=== PATIENT | female | born 1980 | race African-American/Black ===

== ENCOUNTER 2016-10-23 02:53 | Emergency (ER) | payer BC, OTHER ==
[2016-10-23 03:45] VITALS: BP 135/93
[2016-10-23] MEDS ORDERED: DIPHENHYDRAMINE HCL 50 MG/ML VIAL IM ONE (03:46)
[2016-10-23] MEDS ORDERED: PROMETHAZINE HCL INJ 25 MG/1 ML VIAL IM ONE (03:46)
--- NOTE | 2016-10-23 03:49 | ER Document Report ---
ED General - General Chief Complaint: Headache Stated Complaint: HEADACHE AND COLD SYMPTOMS Notes: Patient is a 36-year-old female presents with complaint of pain over her frontal sinuses because of the left side of her head. She says headaches been off and on an intermittent for several days. Tonight she started getting little pain into her neck. Pain is also normal aside her neck. Patient says she's had these headaches multiple times in the past. She says he seemed to be related to her sinuses. She says they've been intermittent for years. Recently she started having cold and sinus type symptoms. She suspects her headache is related to that was not completely sure. She's never had workup for headaches in the past. This no family history of cerebral aneurysms. Headaches or not sudden in onset. No other complaints at this time. TRAVEL OUTSIDE OF THE [place] IN LAST 30 DAYS: No - Related Data Allergies/Adverse Reactions: No Known Allergies Allergy (Verified 02/13/16 10:27) Past Medical History - Social History Smoking Status: Never Smoker Frequency of alcohol use: None Drug Abuse: None Family History: Reviewed & Not Pertinent Patient has suicidal ideation: No Patient has homicidal ideation: No - Past Medical History Cardiac Medical History: Reports: Hx Hypertension Pulmonary Medical History: Denies: Hx Asthma, Hx Bronchitis, Hx Pneumonia Past Surgical History: Reports: Hx Section - x1, Hx Cholecystectomy, Hx Thyroid Surgery - partial thyroidectomy - Immunizations Immunizations up to date: Yes Hx Diphtheria, Pertussis, Tetanus Vaccination: Yes Review of Systems - Review of Systems Notes: My Normal Review Basic REVIEW OF SYSTEMS: CONSTITUTIONAL : Denies fever, chills, or sweats. Denies recent illness. EENT: Denies eye, ear, throat, or mouth pain or symptoms. Denies nasal or sinus congestion. CARDIOVASCULAR: Denies chest pain. RESPIRATORY: Denies cough, cold, or chest congestion. Denies shortness of breath, difficulty breathing, or wheezing. GASTROINTESTINAL: Denies abdominal pain. Denies nausea, vomiting, or diarrhea. Denies constipation. Last BM: GENITOURINARY: Denies difficulty urinating, painful urination, burning, frequency, or blood in urine. MUSCULOSKELETAL: Some neck pain. SKIN: Denies rash or skin lesions. NEUROLOGICAL: Denies altered mental status or loss of consciousness. Has a headache. Denies weakness or paralysis or loss of use of either side. Denies problems with gait or speech. Denies sensory or motor loss. ALL OTHER SYSTEMS REVIEWED AND NEGATIVE. Physical Exam - Vital signs Vitals: Temp Pulse Resp BP Pulse Ox 98.5 F 88 20 152/107 H 98 10/23/16 02:58 10/23/16 02:58 10/23/16 02:58 10/23/16 02:58 10/23/16 02:58 - Notes Notes: General Appearance: Well nourished, alert, cooperative, no acute distress, well to moderate obvious discomfort. Vitals: reviewed, See vital signs table. Head: Some pressure when tapping over the left frontal sinus. Eyes: PERRL, EOMI, Conjuctiva clear Mouth: No decreasd moisture Throat: No tonsillar inflammation, No airway obstruction, No lymphadenopathy Neck: Supple, no neck tenderness, No thyromegaly Lungs: No wheezing, No rales, No rhonci, No accessory muscle use, good air exchange bilaterally. Heart: Normal rate, Regular rythm, No murmur, no rub Abdomen: Normal BS, soft, No rigidity, No abdominal tenderness, No guarding, no rebound, no abdominal masses, no organomegaly Extremities: strength 5/5 in all extremities, good pulses in all extremities, no swelling or tenderness in the extremities, no edema. Skin: warm, dry, appropriate color, no rash Neuro: speech clear, oriented x 3, normal affect, responds appropriately to questions. Cranial nerves II through XII are intact. Distal sensation intact. Patient moves all extremities without difficulty. Normal Romberg. Normal gait. Course - Vital Signs Vital signs: Temp Pulse Resp BP Pulse Ox 98.5 F 74 18 135/93 H 99 10/23/16 02:58 10/23/16 03:41 10/23/16 03:41 10/23/16 03:41 10/23/16 03:41 - Transfer of Care Notes: 10/29/16 05:36 Patient's headache resolved after taking medications. Patient's son much improved. Her pain seemed to be very much over the sinuses cells. Headache was not sudden onset. Is gradual in onset. Headache is not consistent with subarachnoid hemorrhage. This time we'll discharge patient home. Encourage return to ER immediately if she has worsening current headaches, vomiting, fevers, or feels unwell. Patient agrees with plan and will be discharged home. Patient was given hand written discharge instructions because computer system was down at time of discharge. Dictation of this chart was performed using voice recognition software; therefore, there may be some unintended grammatical errors. 10/29/16 05:37 Discharge - Discharge Disposition: HOME, SELF-CARE
[2016-10-23] MEDS ORDERED: PROMETHAZINE HCL INJ 25 MG/1 ML VIAL ONE (04:04)
== END 2016-10-23 05:30 | disposition home or self-care (01) ==
LOC: ER 02:53
DX: R51 Headache (principal); M54.2 Cervicalgia; I10 Essential (primary) hypertension
CPT/HCPCS: 99284; 96372; 70450; J1200; J2550

== ENCOUNTER 2017-01-29 08:10 | Emergency (ER) | payer SELFPAY ==
[2017-01-29 08:32] VITALS: BP 146/93
--- NOTE | 2017-01-29 08:45 | ER Document Report ---
ED General - General Chief Complaint: Constipation Stated Complaint: BACK PAIN Mode of Arrival: Ambulatory Information source: Patient Notes: 36-year-old female presents with complaints of constipation during her menses. Pt denies any fever or chills, denies any urinary or bowel difficulty or complaints. pt notes that when she passes gas the pain goes away. TRAVEL OUTSIDE OF THE [place] IN LAST 30 DAYS: No - HPI Onset: Other - 2 months Onset/Duration: Intermittent Quality of pain: Cramping Severity: Mild Pain Level: 1 Associated symptoms: Other Exacerbated by: Denies Relieved by: Denies Similar symptoms previously: Yes Recently seen / treated by doctor: Yes - seen by obgyn for this pain - Related Data Allergies/Adverse Reactions: No Known Allergies Allergy (Verified 01/29/17 08:13) Past Medical History - Social History Smoking Status: Never Smoker Cigarette use (# per day): No Chew tobacco use (# tins/day): No Family History: Reviewed & Not Pertinent Patient has suicidal ideation: No Patient has homicidal ideation: No - Past Medical History Cardiac Medical History: Reports: Hx Hypertension Pulmonary Medical History: Denies: Hx Asthma, Hx Bronchitis, Hx Pneumonia Renal/ Medical History: Denies: Hx Peritoneal Dialysis Past Surgical History: Reports: Hx Section - x1, Hx Cholecystectomy, Hx Thyroid Surgery - partial thyroidectomy - Immunizations Immunizations up to date: Yes Hx Diphtheria, Pertussis, Tetanus Vaccination: Yes Review of Systems - Review of Systems Notes: REVIEW OF SYSTEMS: CONSTITUTIONAL : Denies fever, chills, or sweats. Denies recent illness. EENT: Denies eye, ear, throat, or mouth pain or symptoms. Denies nasal or sinus congestion or discharge. Denies throat, tongue, or mouth swelling or difficulty swallowing. CARDIOVASCULAR: Denies chest pain. Denies palpitations or racing or irregular heart beat. Denies ankle edema. RESPIRATORY: Denies cough, cold, or chest congestion. Denies shortness of breath, difficulty breathing, or wheezing. GASTROINTESTINAL: Admits constipation GENITOURINARY: Denies difficulty urinating, painful urination, burning, frequency, blood in urine, or discharge. FEMALE GENITOURINARY: Denies vaginal bleeding, heavy or abnormal periods, irregular periods. Denies vaginal discharge or odor. MUSCULOSKELETAL: Denies back or neck pain or stiffness. Denies joint pain or swelling. SKIN: Denies rash, lesions or sores. HEMATOLOGIC : Denies easy bruising or bleeding. LYMPHATIC: Denies swollen, enlarged glands. NEUROLOGICAL: Denies confusion or altered mental status. Denies passing out or loss of consciousness. Denies dizziness or lightheadedness. Denies headache. Denies weakness or paralysis or loss of use of either side. Denies problems with gait or speech. Denies sensory loss, numbness, or tingling. Denies seizures. PSYCHIATRIC: Denies anxiety or stress. Denies depression, suicidal ideation, or homicidal ideation. ALL OTHER SYSTEMS REVIEWED AND NEGATIVE. Dictation was performed using Spool voice recognition software PHYSICAL EXAMINATION: GENERAL: Well-appearing, well-nourished and in no acute distress. HEAD: Atraumatic, normocephalic. EYES: Pupils equal round and reactive to light, extraocular movements intact, conjunctiva are normal. ENT: Nares patent, oropharynx clear without exudates. Moist mucous membranes. NECK: Normal range of motion, supple without lymphadenopathy LUNGS: Breath sounds clear to auscultation bilaterally and equal. No wheezes rales or rhonchi. HEART: Regular rate and rhythm without murmurs ABDOMEN: Soft, nontender, nondistended abdomen. No guarding, no rebound. No masses appreciated. Bilateral CVA tenderness Female : deferred Musculoskeletal: Normal range of motion, no pitting or edema. No cyanosis. NEUROLOGICAL: Cranial nerves grossly intact. Normal speech, normal gait. Normal sensory, motor exams PSYCH: Normal mood, normal affect. SKIN: Warm, Dry, normal turgor, no rashes or lesions noted. Physical Exam - Vital signs Vitals: Temp Pulse Resp BP Pulse Ox 98.1 F 82 20 143/93 H 100 01/29/17 08:13 01/29/17 08:13 01/29/17 08:13 01/29/17 08:13 01/29/17 08:13 Course - Re-evaluation Re-evalutation: 01/29/17 08:46 Urinalysis pending x-ray will be performed after hCG result 01/29/17 10:26 hcg negative, xray normal, will dc home with bentyl. pt otherwise is stable After performing a Medical Screening Examination, I estimate there is LOW risk for ACUTE APPENDICITIS, BOWEL OBSTRUCTION, ACUTE CHOLECYSTITIS, PERFORATED DIVERTICULITIS, INCARCERATED HERNIA, PANCREATITIS, PELVIC INFLAMMATORY DISEASE, PERFORATED ULCER, ECTOPIC , or TUBO-OVARIAN ABSCESS, thus I consider the discharge disposition reasonable. Also, there is no evidence or peritonitis , sepsis, or toxicity. I have reevaluated this patient multiple times and no significant life threatening changes are noted. The patient and I have discussed the diagnosis and risks, and we agree with discharging home with close follow-up with the understanding that symptoms and presentations can change. We also discussed returning to the Emergency Department immediately if new or worsening symptoms occur. We have discussed the symptoms which are most concerning (e.g., bloody stool, fever, changing or worsening pain, vomiting) that necessitate immediate return. - Vital Signs Vital signs: Temp Pulse Resp BP Pulse Ox 98.1 F 82 20 146/93 H 100 01/29/17 08:14 01/29/17 08:14 01/29/17 08:14 01/29/17 08:14 01/29/17 08:14 - Laboratory Laboratory results interpreted by me: 01/29/17 08:40 Ur Leukocyte Esterase SMALL H - Diagnostic Test Radiology reviewed: Image reviewed, Reports reviewed Discharge - Discharge Clinical Impression: Abdominal pain Qualifiers: Abdominal location: generalized Qualified Code(s): R10.84 - Generalized abdominal pain Back pain Qualifiers: Back pain location: low back pain Chronicity: chronic Back pain laterality: bilateral Sciatica presence: with sciatica Sciatica laterality: bilateral sciatica Qualified Code(s): M54.42 - Lumbago with sciatica, left side; M54.41 - Lumbago with sciatica, right side; G89.29 - Other chronic pain Condition: Stable Disposition: HOME, SELF-CARE Instructions: Abdominal Pain ([facility]) Prescriptions: Dicyclomine HCl [Bentyl 20 mg Tablet] 20 mg PO QID #40 tablet Naproxen 500 mg PO BID #20 tablet Referrals: ALBERTO LOJA MD [Primary Care Provider] - Follow up in 3-5 days
[2017-01-29 09:03] LABS: APPEARANCE,URINE SLIGHTLY-CLOUDY; BILIRUBIN,URINE NEGATIVE (NEGATIVE); GLUCOSE, URINE NEGATIVE (NEGATIVE); KETONES,URINE NEGATIVE (NEGATIVE); LEUKOCYTE ESTERASE,URINE SMALL (NEGATIVE); NITRITE,URINE NEGATIVE (NEGATIVE); PROTEIN,URINE NEGATIVE (NEGATIVE); URINE SPECIFIC GRAVITY 1.016; UROBILINOGEN,URINE NEGATIVE mg/dL (<2.0)
== END 2017-01-29 10:35 | disposition home or self-care (01) ==
LOC: ER 08:10
DX: R10.84 Generalized abdominal pain (principal); M54.41 Lumbago with sciatica, right side; M54.42 Lumbago with sciatica, left side; G89.29 Other chronic pain; M54.9 Dorsalgia, unspecified; K59.00 Constipation, unspecified
CPT/HCPCS: 74022; 81001; 81025; 99283

== ENCOUNTER 2017-06-09 15:03 | Emergency (ER) | payer OTHER ==
--- NOTE | 2017-06-09 15:22 | ER Document Report ---
ED Medical Screen (RME) - General Chief Complaint: Vaginal Bleeding Stated Complaint: EXCESSIVE MENSTRAL BLEEDING Time Seen by Provider: 06/09/17 15:21 Notes: Patient presents with heavy vaginal bleeding. She states she has had about 2 weeks of heavy bleeding. She is not lightheaded and dizzy. She was referred here today by her MILL DRESSER. She states she has had this in the past. She has had ultrasounds have been unremarkable and show no evidence of fibroids. She has been tried on oral contraceptives that did work for a while but now seemed to no longer be effective. TRAVEL OUTSIDE OF THE [place] IN LAST 30 DAYS: No - Related Data Allergies/Adverse Reactions: No Known Allergies Allergy (Verified 06/09/17 15:09) Past Medical History - Past Medical History Cardiac Medical History: Reports: Hx Hypertension Pulmonary Medical History: Denies: Hx Asthma, Hx Bronchitis, Hx Pneumonia Renal/ Medical History: Denies: Hx Peritoneal Dialysis Past Surgical History: Reports: Hx Section - x1, Hx Cholecystectomy, Hx Thyroid Surgery - partial thyroidectomy - Immunizations Immunizations up to date: Yes Hx Diphtheria, Pertussis, Tetanus Vaccination: Yes Physical Exam - Vital signs Vitals: Temp Pulse Resp BP Pulse Ox 98.5 F 77 20 123/74 98 06/09/17 15:10 06/09/17 15:10 06/09/17 15:10 06/09/17 15:10 06/09/17 15:10 Course - Vital Signs Vital signs: Temp Pulse Resp BP Pulse Ox 98.5 F 77 20 123/74 98 06/09/17 15:10 06/09/17 15:10 06/09/17 15:10 06/09/17 15:10 06/09/17 15:10
[2017-06-09 16:11] LABS: ABSOLUTE EOSINOPHILS # (AUTO) 0.2 10^3/uL (0.0-0.6); ABSOLUTE LYMPHOCYTES (AUTO) 2.3 10^3/uL (0.5-4.7); ABSOLUTE MONOCYTES (AUTO) 0.6 10^3/uL (0.1-1.4); ABSOLUTE NEUT (AUTO) 6.5 10^3/uL (1.7-8.2); BASOPHILS % (AUTO) 0.4 % (0-2); EOSINOPHILS % (AUTO) 1.7 % (0-6); HEMATOCRIT 35.4 % (36.0-47.0); HEMOGLOBIN 11.2 g/dL (12.0-15.5); HGB HCT DIFFERENCE -1.8; LYMPHOCYTES % (AUTO) 24.1 % (13-45); MEAN CORPUSCULAR HEMOGLOBIN 22.2 pg (27.0-33.4); MEAN CORPUSCULAR HGB CONC 31.7 g/dL (32.0-36.0); MEAN CORPUSCULAR VOLUME 70 fl (80-97); MONOCYTES % (AUTO) 6.5 % (3-13); RED BLOOD COUNT 5.05 10^6/uL (3.72-5.28); RED CELL DISTRIBUTION WIDTH 16.4 % (11.5-14.0); SEGMENTED NEUTROPHILS % (AUTO) 67.3 % (42-78); WHITE BLOOD COUNT 9.7 10^3/uL (4.0-10.5)
--- NOTE | 2017-06-09 16:26 | ER Document Report ---
ED GI/ - General Chief Complaint: Vaginal Bleeding Stated Complaint: EXCESSIVE MENSTRAL BLEEDING Time Seen by Provider: 06/09/17 15:21 Notes: Patient presents with heavy vaginal bleeding. She states she has had about 2 weeks of heavy bleeding. She is not lightheaded and dizzy. She was referred here today by her KITCHEN FOOD SERVER. She states she has had this in the past. She has had ultrasounds have been unremarkable and show no evidence of fibroids. She has been tried on oral contraceptives that did work for a while but now seemed to no longer be effective. admits to dizziness that started today, without vision changes, headache, n/v. No concern for , as she is not sexually active at this time OBGYN: [email or web address] TRAVEL OUTSIDE OF THE [place] IN LAST 30 DAYS: No - Related Data Allergies/Adverse Reactions: No Known Allergies Allergy (Verified 06/09/17 15:09) Home Medications: Current Home Medications Ferrous Sulfate [Iron] 325 mg PO BID 06/09/17 [History] Lisinopril/Hydrochlorothiazide [Lisinopril-Hctz 20-25 mg Tab] 1 each PO DAILY [History] Montelukast Sodium [Singulair] 10 mg PO DAILY 06/09/17 [History] Past Medical History - General Last Menstrual Period: 05/26/2017 - Social History Smoking Status: Never Smoker Chew tobacco use (# tins/day): No Frequency of alcohol use: None Drug Abuse: None Family History: Reviewed & Not Pertinent - Past Medical History Cardiac Medical History: Reports: Hx Hypertension Pulmonary Medical History: Denies: Hx Asthma, Hx Bronchitis, Hx Pneumonia Renal/ Medical History: Denies: Hx Peritoneal Dialysis Past Surgical History: Reports: Hx Section - x1, Hx Cholecystectomy, Hx Thyroid Surgery - partial thyroidectomy - Immunizations Immunizations up to date: Yes Hx Diphtheria, Pertussis, Tetanus Vaccination: Yes Review of Systems - Review of Systems Constitutional: No symptoms reported Gastrointestinal: No symptoms reported Genitourinary: No symptoms reported Female Genitourinary: See HPI -: Yes All other systems reviewed and negative Physical Exam - Vital signs Vitals: Temp Pulse Resp BP Pulse Ox 98.5 F 77 20 123/74 98 06/09/17 15:10 06/09/17 15:10 06/09/17 15:10 06/09/17 15:10 06/09/17 15:10 - Notes Notes: PHYSICAL EXAM GENERAL: Alert, interacts well. LUNGS: Clear to auscultation bilaterally, no wheezes, rales, or rhonchi. No respiratory distress. HEART: Regular rate and rhythm. No murmurs, gallops, or rubs. ABDOMEN: Soft, nondistended, nontender. No guarding, rebound, or rigidity.. Bowel sounds present in all 4 quadrants. FEMALE : Normal external exam. No evidence of lesions, lacerations, bruising or vesicles. Speculum exam normal cervix closed. No evidence of vaginal discharge with odor. No evidence of lesions. Minimal pooling of dark blood within the vaginal vault. No evidence of active vaginal bleeding. Vaginal vaginal bleeding. Bimanual exam normal no cervical motion tenderness. No adnexal mass or adnexal tenderness. EXTREMITIES: Moves all 4 extremities spontaneously. No edema, radial and dorsalis pedis pulses 2/4 bilaterally. No cyanosis. NEUROLOGICAL: Alert and oriented x4. Normal speech. PSYCH: Normal affect, normal mood. SKIN: Warm, dry, normal turgor. No rashes or lesions noted. Course - Re-evaluation Re-evalutation: 06/09/17 21:36 Patient is a 36-year-old female who is hemodynamically stable, no acute distress and afebrile. Vital signs stable. H&H is stable at 11.2 and 35.6. Results and physical exam findings were reviewed with KITCHEN FOOD SERVER Dr. Fabian who recommends patient continue her home medications and follow-up in the clinic. No additional imaging or laboratory evaluation is necessary at this time. Patient is able to ambulate without any difficulty. No dizziness. After performing a Medical Screening Examination, I estimate there is LOW risk for ACUTE APPENDICITIS, BOWEL OBSTRUCTION, ACUTE CHOLECYSTITIS, PERFORATED DIVERTICULITIS, INCARCERATED HERNIA, PANCREATITIS, PELVIC INFLAMMATORY DISEASE, PERFORATED ULCER, ECTOPIC , or TUBO-OVARIAN ABSCESS, thus I consider the discharge disposition reasonable. Also, there is no evidence or peritonitis , sepsis, or toxicity. I have reevaluated this patient multiple times and no significant life threatening changes are noted. The patient and I have discussed the diagnosis and risks, and we agree with discharging home with close follow-up with the understanding that symptoms and presentations can change. We also discussed returning to the Emergency Department immediately if new or worsening symptoms occur. We have discussed the symptoms which are most concerning (e.g., bloody stool, fever, changing or worsening pain, vomiting) that necessitate immediate return. - Vital Signs Vital signs: Temp Pulse Resp BP Pulse Ox 97.8 F 66 16 142/71 H 100 06/09/17 17:31 06/09/17 17:31 06/09/17 17:31 06/09/17 17:31 06/09/17 17:31 - Laboratory Result Diagrams: 06/09/17 15:56 06/09/17 15:56 Laboratory results interpreted by me: 06/09/17 06/09/17 15:56 15:56 Hgb 11.2 L Hct 35.4 L MCV 70 L MCH 22.2 L MCHC 31.7 L RDW 16.4 H Urine Blood LARGE H Discharge - Discharge Clinical Impression: Dysfunctional uterine bleeding Condition: Good Disposition: HOME, SELF-CARE Additional Instructions: VAGINAL BLEEDING: You are having an episode of abnormal bleeding. Causes of abnormal vaginal bleeding can include miscarriage or tubal , tumors such as cancer or benign fibroids, medication effects, or hormone imbalance. Testing can eliminate unsuspected , tumors, or infection as a cause. "Dysfunctional uterine bleeding" is due to hormone imbalance, and is especially common at times when the normal cycle is disturbed -- whether by recent , use of control pills or hormones, or impending menopause. If the bleeding is innocent, most commonly a short course of hormones is given to restore the uterus to normal. Sometimes, the normal menstrual cycle corrects itself naturally. Sometimes , brief hormone therapy, or even a D&C is required. Your physician will advise you. Treatment for anemia may be required if bleeding is severe. You should rest and avoid intercourse until the bleeding is controlled. Call the doctor or return for re-examination if you feel faint, have increasing pain, or have a major increase in the amount of bleeding. NORMAL EXAM AND WORKUP: At this time, except for vaginal bleeding, your examination and workup show no significant abnormality. No significant abnormal physical findings were noted. All laboratory, EKG, and imaging (x-ray, CT scans, ultrasound) studies that were ordered show no significant abnormality. Although your examination and all studies that were ordered showed no significant abnormal finding, there are no examinations and no studies that are 100% accurate. There is always the possibility that some abnormality could exist and not be detected with physical examination or within the limits and capabilities of laboratory and other studies. You should return or follow up as you were instructed on your visit today for further evaluation if your symptoms do not resolve. FOLLOW-UP CARE: If you have been referred to a physician for follow-up care, call the physician s office for an appointment as you were instructed or within the next two days. If you experience worsening or a significant change in your symptoms (very heavy bleeding with large clots of blood, passage of tissue, more severe abdominal / pelvic pain or cramping, feeling faint or severe weakness, fever, etc.), notify the physician immediately or return to the Emergency Department at any time for re-evaluation. Forms: Return to Work Referrals: FREDI ZABALA PA-C [Primary Care Provider] - Follow up as needed ANDRÉS HOLM MD [ACTIVE STAFF] - Follow up in 1 week
[2017-06-09 16:36] LABS: ALANINE AMINOTRANSFERASE 40 U/L (9-52); ALBUMIN 4.3 g/dL (3.5-5.0); ALKALINE PHOSPHATASE 99 U/L (38-126); ANION GAP 14 (5-19); ASPARTATE AMINO TRANSFERASE 25 U/L (14-36); BILIRUBIN,DIRECT 0.4 mg/dL (0.0-0.4); BILIRUBIN,TOTAL 0.4 mg/dL (0.2-1.3); BLOOD UREA NITROGEN 8 mg/dL (7-20); CALCIUM 10.1 mg/dL (8.4-10.2); CARBON DIOXIDE 25 mmol/L (22-30); CHLORIDE 104 mmol/L (98-107); CREATININE RESULT 0.77 mg/dL (0.52-1.25); GLUCOSE 83 mg/dL (75-110); POTASSIUM 3.6 mmol/L (3.6-5.0); SODIUM 142.6 mmol/L (137-145); TOTAL PROTEIN 7.3 g/dL (6.3-8.2)
[2017-06-09 16:50] LABS: APPEARANCE,URINE CLEAR; BILIRUBIN,URINE NEGATIVE (NEGATIVE); GLUCOSE, URINE NEGATIVE (NEGATIVE); KETONES,URINE NEGATIVE (NEGATIVE); LEUKOCYTE ESTERASE,URINE NEGATIVE (NEGATIVE); NITRITE,URINE NEGATIVE (NEGATIVE); PROTEIN,URINE NEGATIVE (NEGATIVE); URINE SPECIFIC GRAVITY 1.013; UROBILINOGEN,URINE NEGATIVE mg/dL (<2.0)
[2017-06-09 17:33] VITALS: BP 142/71
== END 2017-06-09 17:34 | disposition home or self-care (01) ==
LOC: ER 15:03
DX: N93.8 Other specified abnormal uterine and vaginal bleeding (principal); I10 Essential (primary) hypertension; Z79.3 Long term (current) use of hormonal contraceptives
CPT/HCPCS: 36415; 80053; 81001; 81025; 85025; 99284

== ENCOUNTER 2018-09-28 00:58 | Emergency (ER) | payer BC, OTHER ==
[2018-09-28] MEDS ORDERED: PROMETHAZINE HCL INJ 25 MG/1 ML VIAL IM ONE (01:29)
[2018-09-28] MEDS ORDERED: KETOROLAC TROMETHAMINE INJ/PF 30 MG/1 ML SDV IM ONE (01:29)
--- NOTE | 2018-09-28 01:32 | ER Document Report ---
ED General - General Chief Complaint: Headache Stated Complaint: HEAD PAIN Time Seen by Provider: 09/28/18 01:22 Notes: Patient is a pleasant 38-year-old female who presents with complaint of a headache. Headache is been off and on for last week. She says when it starts she feels it coming on and it gradually worsens. She says the headache is on the right side of her neck and goes into her right yarsanism region. It is never on the left side. She has had similar headaches many times in the past. She says she is to think of sinus issues however she had a CT scan of her sinuses which was negative. I saw her in October 2016. At that time she had a CT scan of her brain which was negative. She denies any focal weakness or numbness. Headache is not sudden or maximal in onset. No fevers. No vomiting. No trauma to her head. No photophobia. No other complaints at this time. TRAVEL OUTSIDE OF THE [place] IN LAST 30 DAYS: No - Related Data Allergies/Adverse Reactions: No Known Allergies Allergy (Verified 09/28/18 01:24) Past Medical History - Social History Smoking Status: Never Smoker Frequency of alcohol use: None Drug Abuse: None Family History: Reviewed & Not Pertinent Patient has suicidal ideation: No Patient has homicidal ideation: No - Past Medical History Cardiac Medical History: Reports: Hx Hypertension Pulmonary Medical History: Denies: Hx Asthma, Hx Bronchitis, Hx Pneumonia Renal/ Medical History: Denies: Hx Peritoneal Dialysis Past Surgical History: Reports: Hx Section - x1, Hx Cholecystectomy, Hx Thyroid Surgery - partial thyroidectomy - Immunizations Immunizations up to date: Yes Hx Diphtheria, Pertussis, Tetanus Vaccination: Yes Review of Systems - Review of Systems Notes: My Normal Review Basic REVIEW OF SYSTEMS: CONSTITUTIONAL : Denies fever, chills, or sweats. Denies recent illness. EENT: Denies eye, ear, throat, or mouth pain or symptoms. Denies nasal or sinus congestion. RESPIRATORY: Denies cough, cold, or chest congestion. Denies shortness of breath, difficulty breathing, or wheezing. MUSCULOSKELETAL: Denies neck or back pain or joint pain or swelling. SKIN: Denies rash or skin lesions. HEMATOLOGIC : Denies easy bruising or bleeding. NEUROLOGICAL: Denies altered mental status or loss of consciousness. Has a headache. Denies weakness or paralysis or loss of use of either side. Denies problems with gait or speech. Denies sensory or motor loss. ALL OTHER SYSTEMS REVIEWED AND NEGATIVE. Physical Exam - Vital signs Vitals: Temp Pulse Resp BP Pulse Ox 98.4 F 91 16 128/88 H 98 09/28/18 01:11 09/28/18 01:11 09/28/18 01:11 09/28/18 01:11 09/28/18 01:11 - Notes Notes: General Appearance: Well nourished, alert, cooperative, no acute distress, mild obvious discomfort. Vitals: reviewed, See vital signs table. Head: no swelling or tenderness to the head Eyes: PERRL, EOMI, Conjuctiva clear Mouth: No decreasd moisture Neck: Supple, no swelling to the neck. No stiffness. Patient does have some tenderness to palpation over the right cervical paraspinal musculature. Lungs: No wheezing, No rales, No rhonci, No accessory muscle use, good air exchange bilaterally. Heart: Normal rate, Regular rythm, No murmur, no rub Extremities: strength 5/5 in all extremities, good pulses in all extremities Skin: warm, dry, appropriate color, no rash Neuro: speech clear, oriented x 3, normal affect, responds appropriately to questions. Cranial nerves II through XII are intact. Distal sensation intact. Patient moves all extremities without difficulty. No focal neurologic deficits on exam. Course - Re-evaluation Re-evalutation: 09/28/18 02:52 Patient is feeling much improved. She looks well. I suspect her headache is a tension headache based on affect is one-sided and she does have some reproducible tenderness to palpation of the right cervical paraspinal musculature. These headaches have been intermittent for years now. I do not suspect subarachnoid hemorrhage as the patient has had negative CT scans in the past, she does not have vomiting, she is not currently hypertensive, and her headache is gradual in onset and not maximal or sudden in onset. Encourage patient return to ER if she has worsening headache, vomiting, or feels unwell. Dictation of this chart was performed using voice recognition software; therefore, there may be some unintended grammatical errors. - Vital Signs Vital signs: Temp Pulse Resp BP Pulse Ox 98.4 F 91 16 128/88 H 98 09/28/18 01:11 09/28/18 01:11 09/28/18 01:11 09/28/18 01:11 09/28/18 01:11 Discharge - Discharge Clinical Impression: Headache Qualifiers: Headache type: unspecified Headache chronicity pattern: episodic headache Intractability: not intractable Qualified Code(s): R51 - Headache Condition: Good Disposition: HOME, SELF-CARE Additional Instructions: HEADACHE: The physician does not feel that the headache you are experiencing has a serious underlying cause. Most headaches are due to emotional stress, with resultant muscle tension (tension headache). Occasionally, headaches are secondary to changes in the blood vessels of the scalp (vascular headache and migraine headache). Sometimes, a headache is the first symptom of another developing illness, such as a viral infection. You have no evidence of stroke, bleeding, meningitis, or other serious cause of your headache. The treatment of headaches varies with the severity and cause of the pain. Not all headaches need pain shots. In fact, there is evidence that using narcotics for headaches may make them worse in the long run. The physician will determine the therapy that's in your best interest. If you develop a fever, if the headache is different from any you've previously experienced, or if the headache progressively worsens, then call your physician at once or go to the emergency room. TORADOL INJECTION: You have been given an injection of ketorolac tromethamine (Toradol). This is an excellent, safe drug for pain control. It also has potent antiinflammatory action. You should have significant pain relief within about one hour. Toradol is not addicting and is non-sedating. It does not interfere with driving or work. Call or return if you develop itching, hives, shortness of breath, or rash. FOLLOW-UP CARE: If you have been referred to a physician for follow-up care, call the physician s office for an appointment as you were instructed or within the next two days. If you experience worsening or a significant change in your symptoms, notify the physician immediately or return to the Emergency Department at any time for re-evaluation. I have prescribed you Toradol. Toradol is nonsedating and therefore you can take it still drive and go to work. Do not take other NSAID medications such as Aspirin, Motrin, Ibuprofen, Aleve, or Advil when taking the Toradol. It is okay to take Tylenol. I also prescribed Phenergan. This medication will make you little bit sleepy. You can take this medication for headache if you do not plan on going out or driving. Please follow-up closely with your doctor this week. Please return to the ER if you have worsening recurrent headaches that are not improving with symptoms. Prescriptions: Ketorolac Tromethamine [Toradol 10 mg Tablet] 10 mg PO Q8HP PRN #12 tablet PRN Reason: Promethazine HCl [Phenergan 25 mg Tablet] 1 tab PO Q6H PRN #15 tablet PRN Reason: Forms: Return to Work Referrals: FREDI ZABALA PA-C [Primary Care Provider] - Follow up in 3-5 days
[2018-09-28 03:05] VITALS: BP 114/63
== END 2018-09-28 03:05 | disposition home or self-care (01) ==
LOC: ER 00:58
DX: R51 Headache (principal); I10 Essential (primary) hypertension
CPT/HCPCS: 99283; 96372; 96374; J1885; J2550

== ENCOUNTER 2019-05-30 13:12 | Emergency (ER) | payer BC ==
--- NOTE | 2019-05-30 14:28 | ER Document Report ---
ED Medical Screen (RME) - General Chief Complaint: Chest Pain Stated Complaint: SHORT OF BREATH, CHEST PAIN Time Seen by Provider: 05/30/19 14:24 Primary Care Provider: KILO LOUISE NP [Primary Care Provider] - Follow up as needed Notes: Patient is a 38-year-old female with a history of hypertension, anemia and seasonal allergies who presents to the emergency department with a chief complaint of chest pain. Patient states last Friday on her way to work she developed pain that was located in the center of her chest. Patient reports since then the pain has been intermittent with some associated shortness of breath. Patient states nothing makes the pain better or worse. Patient states it feels like an ache. Patient states that times the pain will radiate to the left chest, right chest, left shoulder and upper back. Patient denies recent long car rides, control use, calf pain or swelling, history of blood clots. TRAVEL OUTSIDE OF THE [place] IN LAST 30 DAYS: No - Related Data Allergies/Adverse Reactions: No Known Allergies Allergy (Verified 05/30/19 13:13) Past Medical History - Past Medical History Cardiac Medical History: Reports: Hx Hypertension Pulmonary Medical History: Denies: Hx Asthma, Hx Bronchitis, Hx Pneumonia Renal/ Medical History: Denies: Hx Peritoneal Dialysis Past Surgical History: Reports: Hx Section - x1, Hx Cholecystectomy, Hx Thyroid Surgery - partial thyroidectomy - Immunizations Immunizations up to date: Yes Hx Diphtheria, Pertussis, Tetanus Vaccination: Yes Physical Exam - Vital signs Vitals: Temp Pulse Resp BP Pulse Ox 98.4 F 65 15 131/79 H 96 05/30/19 13:42 05/30/19 13:42 05/30/19 13:42 05/30/19 13:42 05/30/19 13:42 - Cardiovascular Rhythm: Regular Heart sounds: Normal auscultation, S1 appreciated, S2 appreciated Notes: + reproducible chest pain - Abdominal Inspection: Obese Distension: No distension Bowel sounds: Normal Tenderness: Nontender Organomegaly: No organomegaly Course - Re-evaluation Re-evalutation: 05/30/19 14:27 I have greeted and performed a rapid initial assessment of this patient. A comprehensive ED assessment and evaluation of the patient, analysis of test results and completion of the medical decision making process will be conducted by additional ED providers. - Vital Signs Vital signs: Temp Pulse Resp BP Pulse Ox 98.4 F 65 15 131/79 H 96 05/30/19 13:42 05/30/19 13:42 05/30/19 13:42 05/30/19 13:42 05/30/19 13:42 Doctor's Discharge - Discharge Referrals: KILO LOUISE, [employer] [Primary Care Provider] - Follow up as needed
[2019-05-30 15:03] LABS: ABSOLUTE BASOPHILS # (AUTO) 0.1 10^3/uL (0.0-0.2); ABSOLUTE EOSINOPHILS # (AUTO) 0.1 10^3/uL (0.0-0.6); ABSOLUTE MONOCYTES (AUTO) 0.5 10^3/uL (0.1-1.4); ABSOLUTE NEUT (AUTO) 4.8 10^3/uL (1.7-8.2); BASOPHILS % (AUTO) 1.1 % (0-2); EOSINOPHILS % (AUTO) 1.8 % (0-6); HEMATOCRIT 33.6 % (36.0-47.0); HEMOGLOBIN 10.5 g/dL (12.0-15.5); LYMPHOCYTES % (AUTO) 26.2 % (13-45); MEAN CORPUSCULAR HEMOGLOBIN 21.5 pg (27.0-33.4); MEAN CORPUSCULAR HGB CONC 31.4 g/dL (32.0-36.0); MEAN CORPUSCULAR VOLUME 69 fl (80-97); MONOCYTES % (AUTO) 6.9 % (3-13); PLATELET COUNT 442 10^3/uL (150-450); RED CELL DISTRIBUTION WIDTH 16.3 % (11.5-14.0); TOTAL CELLS COUNTED % (AUTO) 100 %; WHITE BLOOD COUNT 7.5 10^3/uL (4.0-10.5)
[2019-05-30] MEDS ORDERED: KETOROLAC TROMETHAMINE INJ/PF 30 MG/1 ML SDV IV ONE (15:10)
[2019-05-30 15:19] LABS: APPEARANCE,URINE SLIGHTLY-CLOUDY; BILIRUBIN,URINE NEGATIVE (NEGATIVE); COLOR,URINE AMBER; GLUCOSE, URINE NEGATIVE (NEGATIVE); KETONES,URINE TRACE mg/dL (NEGATIVE); LEUKOCYTE ESTERASE,URINE NEGATIVE (NEGATIVE); NITRITE,URINE NEGATIVE (NEGATIVE); PROTEIN,URINE 100 mg/dL (NEGATIVE); URINE SPECIFIC GRAVITY 1.027; UROBILINOGEN,URINE NEGATIVE mg/dL (<2.0)
[2019-05-30 15:20] LABS: ALBUMIN 4.1 g/dL (3.5-5.0); ALKALINE PHOSPHATASE 84 U/L (38-126); ANION GAP 7 (5-19); ASPARTATE AMINO TRANSFERASE 27 U/L (14-36); BILIRUBIN,DIRECT 0.4 mg/dL (0.0-0.4); BILIRUBIN,TOTAL 0.5 mg/dL (0.2-1.3); BLOOD UREA NITROGEN 6 mg/dL (7-20); CARBON DIOXIDE 29 mmol/L (22-30); CHLORIDE 104 mmol/L (98-107); GLUCOSE 83 mg/dL (75-110); POTASSIUM 4.4 mmol/L (3.6-5.0); TOTAL PROTEIN 7.1 g/dL (6.3-8.2)
--- NOTE | 2019-05-30 15:21 | RADIOLOGY REPORT (SQ) ---
EXAM DESCRIPTION: CHEST 2 VIEWS COMPLETED DATE/TIME: 05/30/2019 3:11 pm REASON FOR STUDY: chest pain COMPARISON: 09/24/2015 TECHNIQUE: Frontal and lateral radiographic views of the chest acquired. NUMBER OF VIEWS: Two view. LIMITATIONS: None. FINDINGS: LUNGS AND PLEURA: No pneumothorax. No consolidation or pleural effusion. MEDIASTINUM AND HILAR STRUCTURES: Stable. HEART AND VASCULAR STRUCTURES: Stable. BONES: No acute findings. HARDWARE: None in the chest. OTHER: No other significant finding. IMPRESSION: NO ACUTE FINDINGS. TECHNICAL DOCUMENTATION: JOB ID: [id number] [id number] 2010 [employer]- All Rights Reserved Reading location - IP/workstation name: [email or web address]
--- NOTE | 2019-05-30 15:33 | ER Document Report ---
ED General - General Chief Complaint: Chest Pain Stated Complaint: SHORT OF BREATH, CHEST PAIN Time Seen by Provider: 05/30/19 14:24 Primary Care Provider: KILO LOUISE [employer] CONTROL [employer]TER [Primary Care Provider] - Follow up as needed TRAVEL OUTSIDE OF THE [place] IN LAST 30 DAYS: No - HPI Notes: Patient is a 38-year-old female that presents to the emergency department for chief complaint of chest pain. Patient reports a chest pain that is substernal and radiates across her upper chest bilaterally for the last 4 to 5 days. She states it occurs 1-2 times a day and lasts for 5 to 10 minutes at a time and then completely resolves. She does have associated shortness of breath. She denies any lightheadedness, diaphoresis, nausea, vomiting or paresthesias. Patient does state that she has been under a lot of stress recently and does feel more anxious than usual. She denies history of panic attacks in the past. She denies recent surgery, travel, immobilization, lower extremity swelling, estrogen use, cancer history or family history of DVT/PE. Currently patient states she is feeling much better since receiving Toradol in triage. He denies any injury. She denies aggravating or relieving factors to the pain when it is present. Past Medical History: Hypertension, anemia Past Surgical History: Cholecystectomy, Social History: Denies drugs alcohol and tobacco Family History: Reviewed and noncontributory for presenting illness Allergies: Reviewed, see documented allergy list. REVIEW OF SYSTEMS: CONSTITUTIONAL : No fever No chills No diaphoresis No recent illness EENT: No vision changes No congestion No sore throat CARDIOVASCULAR: chest pain No palpitations RESPIRATORY: shortness of breath No cough No difficulty breathing GASTROINTESTINAL: No abdominal pain No nausea No vomiting No diarrhea GENITOURINARY: No dysuria No hematuria No difficulty urinating MUSCULOSKELETAL: No back pain No leg pain No arm pain SKIN: No rashes No lesions LYMPHATIC: No swollen, enlarged glands. NEUROLOGICAL: No lightheadedness No headache No weakness No paresthesias PSYCHIATRIC: anxiety No depression PHYSICAL EXAMINATION: Vital signs reviewed, nursing noted reviewed. GENERAL: Well-appearing, well-nourished and in no acute distress. HEAD: Atraumatic, normocephalic. EYES: Eyes appear normal, extraocular movements intact, sclera anicteric, conjunctiva are normal. ENT: nares patent, oropharynx clear without exudates. Moist mucous membranes. NECK: Normal range of motion, supple without lymphadenopathy LUNGS: Breath sounds clear to auscultation bilaterally and equal. No wheezes rales or rhonchi. HEART: Regular rate and rhythm without murmurs ABDOMEN: Soft, nontender, normoactive bowel sounds. No rebound, guarding, or rigidity. No masses appreciated. EXTREMITIES: Nontender, good range of motion, no pitting or edema. NEUROLOGICAL: No focal neurological deficits. Moves all extremities spont aneously Motor and sensory grossly intact on exam. PSYCH: Normal mood, normal affect. SKIN: Warm, Dry, normal turgor, no rashes or lesions noted on exposed skin - Related Data Allergies/Adverse Reactions: No Known Allergies Allergy (Verified 05/30/19 13:13) Past Medical History - Social History Smoking Status: Never Smoker Frequency of alcohol use: None Drug Abuse: None Family History: Reviewed & Not Pertinent Patient has suicidal ideation: No Patient has homicidal ideation: No - Past Medical History Cardiac Medical History: Reports: Hx Hypertension Pulmonary Medical History: Denies: Hx Asthma, Hx Bronchitis, Hx Pneumonia Renal/ Medical History: Denies: Hx Peritoneal Dialysis Past Surgical History: Reports: Hx Section - x1, Hx Cholecystectomy, Hx Thyroid Surgery - partial thyroidectomy - Immunizations Immunizations up to date: Yes Hx Diphtheria, Pertussis, Tetanus Vaccination: Yes Physical Exam - Vital signs Vitals: Temp Pulse Resp BP Pulse Ox 98.4 F 65 15 131/79 H 96 05/30/19 13:42 05/30/19 13:42 05/30/19 13:42 05/30/19 13:42 05/30/19 13:42 Course - Re-evaluation Re-evalutation: 05/30/19 15:50 Vitals reviewed. Nursing notes reviewed. Patient is well-appearing and in no acute distress. She is currently asymptomatic. Her EKG shows no acute ischemic changes. She has a heart score of 1. She is PERC criteria negative and I am not clinically suspicious for pulmonary embolism. Her work-up today is unremarkable including a negative troponin. Patient's anemia is chronic and at baseline. She did have blood in her urine but is currently on her menstrual cycle. I do not suspect ACS at this time. I did advise her to modify her diet to avoid foods that would aggravate acid reflux and to talk to her primary care doctor regarding home stressors. Patient in agreement with this plan of care and aware of return precautions. She is stable at discharge. Laboratory 05/30/19 05/30/19 05/30/19 14:51 14:51 14:51 WBC 7.5 RBC 4.90 Hgb 10.5 L Hct 33.6 L MCV 69 L MCH 21.5 L MCHC 31.4 L RDW 16.3 H Plt Count 442 Seg Neutrophils % 64.0 Lymphocytes % 26.2 Monocytes % 6.9 Eosinophils % 1.8 Basophils % 1.1 Absolute Neutrophils 4.8 Absolute Lymphocytes 2.0 Absolute Monocytes 0.5 Absolute Eosinophils 0.1 Absolute Basophils 0.1 Sodium 139.8 Potassium 4.4 Chloride 104 Carbon Dioxide 29 Anion Gap 7 BUN 6 L Creatinine 0.62 Est GFR ( Amer) > 60 Est GFR (Non-Af Amer) > 60 Glucose 83 Calcium 10.0 Total Bilirubin 0.5 Direct Bilirubin 0.4 Neonat Total Bilirubin Not Reportable Neonat Direct Bilirubin Not Reportable Neonat Indirect Bili Not Reportable AST 27 ALT 19 Alkaline Phosphatase 84 Troponin I < 0.012 Total Protein 7.1 Albumin 4.1 Urine Color Urine Appearance Urine pH Ur Specific [place] Urine Protein Urine Glucose (UA) Urine Ketones Urine Blood Urine Nitrite Urine Bilirubin Urine Urobilinogen Ur Leukocyte Esterase Urine WBC (Auto) Urine RBC (Auto) Urine Bacteria (Auto) Squamous Epi Cells Auto Urine Mucus (Auto) Urine Ascorbic Acid Urine HCG, Qual 05/30/19 14:51 WBC RBC Hgb Hct MCV MCH MCHC RDW Plt Count Seg Neutrophils % Lymphocytes % Monocytes % Eosinophils % Basophils % Absolute Neutrophils Absolute Lymphocytes Absolute Monocytes Absolute Eosinophils Absolute Basophils Sodium Potassium Chloride Carbon Dioxide Anion Gap BUN Creatinine Est GFR ( Amer) Est GFR (Non-Af Amer) Glucose Calcium Total Bilirubin Direct Bilirubin Neonat Total Bilirubin Neonat Direct Bilirubin Neonat Indirect Bili AST ALT Alkaline Phosphatase Troponin I Total Protein Albumin Urine Color CHRISTINE Urine Appearance SLIGHTLY-CLOUDY Urine pH 6.0 Ur Specific [place] 1.027 Urine Protein 100 H Urine Glucose (UA) NEGATIVE Urine Ketones TRACE H Urine Blood LARGE H Urine Nitrite NEGATIVE Urine Bilirubin NEGATIVE Urine Urobilinogen NEGATIVE Ur Leukocyte Esterase NEGATIVE Urine WBC (Auto) 4 Urine RBC (Auto) 4 Urine Bacteria (Auto) TRACE Squamous Epi Cells Auto 18 Urine Mucus (Auto) MANY Urine Ascorbic Acid NEGATIVE Urine HCG, Qual NEGATIVE Chest X-Ray 05/30/19 14:25 IMPRESSION: NO ACUTE FINDINGS. 05/30/19 15:52 - Vital Signs Vital signs: Temp Pulse Resp BP Pulse Ox 98.4 F 65 15 131/79 H 96 05/30/19 13:42 05/30/19 13:42 05/30/19 13:42 05/30/19 13:42 05/30/19 13:42 - Laboratory Result Diagrams: 05/30/19 14:51 05/30/19 14:51 Laboratory results interpreted by me: 05/30/19 05/30/19 05/30/19 14:51 14:51 14:51 Hgb 10.5 L Hct 33.6 L MCV 69 L MCH 21.5 L MCHC 31.4 L RDW 16.3 H BUN 6 L Urine Protein 100 H Urine Ketones TRACE H Urine Blood LARGE H - EKG Interpretation by Me Additional EKG results interpreted by me: 05/30/19 15:53 Interpreted by myself [id number]: Normal sinus rhythm, rate 74, normal axis, no ectopy, no STEMI but no Wellens or Brugada Discharge - Discharge Clinical Impression: Anemia Qualifiers: Anemia type: other cause Other causes of anemia: other cause, not classified Qualified Code(s): D64.89 - Other specified anemias Chest pain Qualifiers: Chest pain type: unspecified Qualified Code(s): R07.9 - Chest pain, unspecified Condition: Stable Disposition: HOME, SELF-CARE Instructions: Anemia ([facility]), Chest Pain of Unclear Cause ([facility]), Anxiety ([facility]) Additional Instructions: Please return to the emergency department if you have any worsening, or concern of your symptoms. Please return to the emergency department if you develop chest pain, difficulty breathing, severe abdominal pain, or ongoing vomiting. Please follow-up with your primary care physician in 2-3 days and any other recommended physicians. If prescribed, take all medications as directed. If you have any questions or concerns do not hesitate to return the emergency department for evaluation. Avoid fried food, spicy food, citrus food, caffeine, chocolate and coffee. These foods will aggravate acid reflux. Referrals: KILO LOUISE NP [Primary Care Provider] - Follow up in 3-5 days
[2019-05-30 17:17] VITALS: BP 119/78
--- NOTE | 2019-05-31 00:27 | EKG REPORT ---
SEVERITY:- NORMAL ECG - SINUS RHYTHM : Confirmed by: Rolf Delaney 31-May-2019 00:27:36
== END 2019-05-30 17:16 | disposition home or self-care (01) ==
LOC: ER 13:12
DX: R07.9 Chest pain, unspecified (principal); D64.89 Other specified anemias; R06.02 Shortness of breath; F41.9 Anxiety disorder, unspecified; I10 Essential (primary) hypertension
CPT/HCPCS: 93005; 36415; 85025; 81025; 80053; 81001; 84484; 71046; 93010; J1885; 99285

== ENCOUNTER 2019-11-10 10:37 | Emergency (ER) | payer OTHER, BC ==
[2019-11-10] MEDS ORDERED: FENTANYL CITRATE INJ/PF 100 MCG/2 ML AMPUL IV ONE (11:18)
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
[2019-11-10] MEDS ORDERED: ONDANSETRON HCL INJ/PF 4 MG/2 ML SDV IV ONE (11:41)
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
[2019-11-10 12:31] LABS: ALKALINE PHOSPHATASE 90 U/L (38-126); ANION GAP 10 (5-19); ASPARTATE AMINO TRANSFERASE 25 U/L (14-36); BILIRUBIN,TOTAL 0.2 mg/dL (0.2-1.3); BLOOD UREA NITROGEN 10 mg/dL (7-20); CALCIUM 9.5 mg/dL (8.4-10.2); CARBON DIOXIDE 24 mmol/L (22-30); CHLORIDE 105 mmol/L (98-107); GLUCOSE 103 mg/dL (75-110); POTASSIUM 3.8 mmol/L (3.6-5.0)
[2019-11-10 12:35] LABS: ABSOLUTE EOSINOPHILS # (AUTO) 0.1 10^3/uL (0.0-0.6); ABSOLUTE LYMPHOCYTES (AUTO) 1.5 10^3/uL (0.5-4.7); ABSOLUTE MONOCYTES (AUTO) 0.9 10^3/uL (0.1-1.4); ABSOLUTE NEUT (AUTO) 6.9 10^3/uL (1.7-8.2); BASOPHILS % (AUTO) 0.4 % (0-2); EOSINOPHILS % (AUTO) 1.5 % (0-6); HEMATOCRIT 35.2 % (36.0-47.0); HEMOGLOBIN 11.5 g/dL (12.0-15.5); LYMPHOCYTES % (AUTO) 15.5 % (13-45); MEAN CORPUSCULAR HEMOGLOBIN 22.7 pg (27.0-33.4); MEAN CORPUSCULAR HGB CONC 32.8 g/dL (32.0-36.0); MEAN CORPUSCULAR VOLUME 69 fl (80-97); MONOCYTES % (AUTO) 9.5 % (3-13); PLATELET COUNT 377 10^3/uL (150-450); RED BLOOD COUNT 5.09 10^6/uL (3.72-5.28); RED CELL DISTRIBUTION WIDTH 16.1 % (11.5-14.0); SEGMENTED NEUTROPHILS % (AUTO) 73.1 % (42-78); TOTAL CELLS COUNTED % (AUTO) 100 %; WHITE BLOOD COUNT 9.4 10^3/uL (4.0-10.5)
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
[2019-11-10 15:10] VITALS: BP 143/88
== END 2019-11-10 15:10 | disposition home or self-care (01) ==
LOC: ER 10:37
DX: M25.571 Pain in right ankle and joints of right foot (principal); M79.89 Other specified soft tissue disorders; R07.9 Chest pain, unspecified; R10.9 Unspecified abdominal pain; M25.532 Pain in left wrist; M25.562 Pain in left knee; M79.631 Pain in right forearm; V87.7XXA Person injured in collision between other specified motor vehicles (traffic), initial encounter; I10 Essential (primary) hypertension
CPT/HCPCS: 99285; 96374; 96375; 36415; 84703; 85025; 80053; 73610; 73110; 71260; 74177; J3010; J2405